=== PATIENT | male | born 1970 | race Caucasian/White ===

== ENCOUNTER 2020-05-25 23:48 | Emergency (ER) | payer OTHER, SELFPAY ==
[~2020-05-25] VITALS: Ht 180.3 cm; Wt 96.2 kg
[2020-05-25 23:53] VITALS: BP 158/105
--- NOTE | 2020-05-25 23:55 | NUR ---
PT TAKEN TO BED 08 WITH STEADY GAIT.
--- NOTE | 2020-05-25 23:59 | NUR ---
49M PT PRESENTS TO ED WITH C/O DIZZINESS X 1 DAY S/P SMOKING METH. PT REPORTS THAT THEY HAVE RESTARTED USING METH AGAIN X 3 WEEKS AND HAS DIZZY SPELLS RIGHT AFTER SMOKING. PT A/O X 4, GCS 15. DENIES ANY HEADACHE. RR EVEN AND UNLABORED. CBL SOUNDS. DENIES SOB/COUGH. ABDOMEN SOFT AND NONTENDER. NORMOACTIVE BOWEL SOUNDS. DENIES N/V/D. PT IS AMBULATORY. PMHX: DENIES RX: DENIES NKA NEGATIVE FOR COVID SCREENING. WEARING MASK.
--- NOTE | 2020-05-26 00:36 | NUR ---
covid swab cllected and sent to lab.
[2020-05-26 00:53] VITALS: BP 158/105
--- NOTE | 2020-05-26 01:29 | NUR ---
Patient discharged with v/s stable. Written and verbal after care instructions given and explained. Patient verbalized understanding. Ambulatory with steady gait. All questions addressed prior to discharge. Advised to follow up with PMD.
--- NOTE | 2020-05-27 16:49 | NUR ---
RECIEVED CRITICAL FROM LAB, POSITIVE COVID RESULT. COPY PLACED IN INFECTION CONTROL
== END 2020-05-26 01:29 | disposition home or self-care (01) ==
LOC: MED 23:48 → EEVIPCON 23:48 → MED 05-26 01:29
DX: U07.1 COVID-19 (principal); J45.901 Unspecified asthma with (acute) exacerbation; F15.129 Other stimulant abuse with intoxication, unspecified
CPT/HCPCS: 71045; 99284; Q0092; U0003

== ENCOUNTER 2022-03-26 01:28 | Emergency (ER) | payer OTHER ==
[~2022-03-26] VITALS: Ht 180.3 cm; Wt 102.1 kg
[2022-03-26 02:20] VITALS: BP 145/90
--- NOTE | 2022-03-26 02:26 | NUR ---
Dr. Wolfe at triage to examming patient.
--- NOTE | 2022-03-26 02:32 | NUR ---
Patient taken to Chair C.
[2022-03-26] MEDS ORDERED: INDO-305 PO (03:28)
[2022-03-26 03:41] VITALS: BP 145/90
--- NOTE | 2022-03-26 03:41 | NUR ---
Note undone in [facility] - 03/26/22 at 0350 by LAWRENCE Patient D/C with out D/C papers. Addendum: 03/26/22 at 0346 by LAWRENCE Amendment puneet in [facility] - 03/26/22 at 0350 by [email or web address] Patient left without D/C paper.
[2022-03-26] MEDS: KETOROLAC 30 MG/ML VIAL IM ONE ×2 (03:42→03:56)
--- NOTE | 2022-03-27 05:30 | NUR ---
PATIENT BROUGHT SELF BACK TO THE ER TO GET EXCUSED WORK FORM. GABRIEL COUCH AWARE AND SIGNED OFF PAPERWORK.
== END 2022-03-26 03:55 | disposition home or self-care (01) ==
LOC: MED 01:28
DX: M79.672 Pain in left foot (principal); M79.675 Pain in left toe(s); Z79.899 Other long term (current) drug therapy
CPT/HCPCS: 96372; 99283; J1885

== ENCOUNTER 2022-04-17 02:08 | Emergency (ER) | payer OTHER ==
[~2022-04-17] VITALS: Ht 180.3 cm; Wt 106.6 kg
[~2022-04-17 02:08] MED LIST: INDO-305 PO
[2022-04-17 02:09] VITALS: BP 150/103
--- NOTE | 2022-04-17 02:09 | NUR ---
TO BED AMBULATORY
--- NOTE | 2022-04-17 03:20 | NUR ---
PATIENT PRESENTS TO ED WITH ABCESS IN MOUTH. PT STATES MOUTH ABCESS HAS BEEN IRRITATING AND CURRENTLY SMOKES METH. DENIES N/V/D; SKIN IS PINK/WARM/DRY; AAOX4 WITH EVEN AND STEADY GAIT; LUNGS CLEAR BL; HR EVEN AND REGULAR; PT DENIES ANY FEVER, CP, SOB, OR COUGH AT THIS TIME; PATIENT STATES PAIN OF 0/10 AT THIS TIME; VSS; PATIENT POSITIONED FOR COMFORT; HOB ELEVATED; BEDRAILS UP X2; BED DOWN. ER MD MADE AWARE OF PT STATUS.
[2022-04-17] MEDS ORDERED: SULF-59 PO (03:43)
[2022-04-17 04:15] VITALS: BP 152/109
== END 2022-04-17 04:17 | disposition home or self-care (01) ==
LOC: MED 02:08
DX: K12.2 Cellulitis and abscess of mouth (principal); Z79.899 Other long term (current) drug therapy
CPT/HCPCS: 99281